=== PATIENT | female | born 1995 | race Two or more races ===

== ENCOUNTER 2020-06-27 16:40 | Observation (INO) | payer MEDICAID, OTHER ==
[~2020-06-27] VITALS: Ht 160 cm; Wt 79.8 kg
[2020-06-27] MEDS ORDERED: PREN-96 PO (17:40)
[2020-06-27] MEDS: TERBUTALINE SULFATE 1 MG/ML 1ML VIAL SC SCH ×2 (19:03→19:27)
== END 2020-06-27 20:30 | disposition home or self-care (01) ==
LOC: LDRP 16:40
PROVIDERS: ADMIT Obstetrics & Gynecology; ATTEND Obstetrics & Gynecology
DX: O60.03 Preterm labor without delivery, third trimester (principal); O46.93 Antepartum hemorrhage, unspecified, third trimester; Z3A.34 34 weeks gestation of pregnancy; W18.39XA Other fall on same level, initial encounter; Y93.89 Activity, other specified; Y92.89 Other specified places as the place of occurrence of the external cause
CPT/HCPCS: 59025; 76805; 76817; 81002; 96372; G0378; J3105